=== PATIENT | female | born 1980 | race Hispanic/Latino ===

== ENCOUNTER 2019-08-09 14:03 | Emergency (ER) | payer BC, SELFPAY ==
[2019-08-09] MEDS ORDERED: KETOROLAC 30 MG/ML INJ ONE (14:29)
[2019-08-09] MEDS ORDERED: DIAZEPAM 5 MG TABLET ONE (14:29)
--- NOTE | 2019-08-09 14:51 | ER ---
Nurse's Notes [facility] Name: Jennifer Doan Age: 39 yrs Sex: Female : 1980 Arrival Date: 08/09/2019 Time: 14:04 Bed 4 Private MD: Enoc Meza E Diagnosis: Low back pain Presentation: 08/08 14:10 Chief complaint: Patient states: "loading a cart of ice, felt a sharp pain on lower ca1 back" Reports pain on Lower back aggravated by movement. Coronavirus screen: Proceed with normal triage. Patient denies a cough. Patient denies shortness of breath or difficulty breathing. Patient denies measured and/or subjective temperature greater than 100.4F prior to today's visit. Patient denies travel on a cruise ship or to a country the [facility] currently lists as an affected area. Patient denies contact with known and/or suspected case of COVID-19. Ebola Screen: Patient negative for fever greater than or equal to 101.5 degrees Fahrenheit, and additional compatible Ebola Virus Disease symptoms Patient denies exposure to infectious person. Patient denies travel to an Ebola-affected area in the 21 days before illness onset. No symptoms or risks identified at this time. Initial Sepsis Screen: Does the patient meet any 2 criteria? No. Patient's initial sepsis screen is negative. Does the patient have a suspected source of infection? No. Patient's initial sepsis screen is negative. Risk Assessment: Do you want to hurt yourself or someone else? Patient reports no desire to harm self or others. Onset of symptoms was August 09, 2019. 14:10 Method Of Arrival: Wheelchair ca1 14:10 Acuity: SHIRA 4 ca1 Triage Assessment: 14:10 General: Appears in no apparent distress. comfortable, Behavior is cooperative, bp appropriate for age, anxious. Pain: Complains of pain in lumbar area. EENT: No deficits noted. Neuro: No deficits noted. Cardiovascular: No deficits noted. Respiratory: No deficits noted. GI: No signs and/or symptoms were reported involving the gastrointestinal system. : No signs and/or symptoms were reported regarding the genitourinary system. Derm: No deficits noted. Musculoskeletal: Circulation, motion, and sensation intact. Range of motion: intact in all extremities. 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 - Social history:: Smoking status: Patient denies any tobacco usage or history of. Screenin:30 Abuse screen: Denies threats or abuse. Denies injuries from another. Nutritional bp screening: No deficits noted. Tuberculosis screening: No symptoms or risk factors identified. Fall Risk None identified. Assessment: 14:10 General: SEE TRIAGE NOTE. bp 15:16 Reassessment: PT D/C HOME AMBULATORY, DX WITH BACK PAIN. Neuro: Level of Consciousness bp is awake, alert, obeys commands, Oriented to Appropriate for age. Vital Signs: 14:10 BP 128 / 81; Pulse 71; Resp 16 S; Temp 98(TE); Pulse Ox 100% on R/A; Weight 124.74 kg ca1 (R); Height 5 ft. 9 in. (175.26 cm) (R); Pain 8/10; 15:15 BP 110 / 57; Pulse 70; Resp 16; Temp 98; Pulse Ox 100% ; bp 14:10 Body Mass Index 40.61 (124.74 kg, 175.26 cm) ca1 ED Course: 14:04 Patient arrived in ED. am2 14:04 Enoc Meza MD is Private Physician. am2 14:07 Ladi Fierro FNP-C is [facility]. snw 14:07 Erik Quinones MD is Attending Physician. snw 14:12 Triage completed. ca1 14:13 Arm band placed on right wrist. ca1 14:15 Marcos Castelan, LYNSEY is Primary Nurse. bp 14:30 Patient has correct armband on for positive identification. Bed in low position. Call bp light in reach. Side rails up X2. 14:50 Enoc Meza MD is Referral Physician. snw 15:16 No provider procedures requiring assistance completed. Patient did not have IV access bp during this emergency room visit. Administered Medications: 14:27 Drug: TORadol 30 mg Route: IM; Site: left deltoid; rb1 15:18 Follow up: Response: Pain is decreased bp 14:27 Drug: Valium 5 mg Route: PO; rb1 15:18 Follow up: Response: Pain is decreased bp Outcome: 14:51 Discharge ordered by . snw 15:16 Patient left the ED. iw 15:16 Discharged to home ambulatory. bp 15:16 Condition: stable 15:16 Discharge instructions given to patient, Instructed on discharge instructions, follow up and referral plans. medication usage, Demonstrated understanding of instructions, follow-up care, medications, Prescriptions given X 2. Signatures: Ladi Fierro, CONFIGURATION TECHNICIAN-C CONFIGURATION TECHNICIAN-Csnw lAyssa Allen, RN RN iw Maddy Garcia RN RN rb1 Priscilla Mcintyre Brian RN RN bp Sherrell Lacey RN RN ca1
--- NOTE | 2019-08-09 14:51 | EDPHYS ---
Physician Documentation [facility] Name: Jennifer Doan Age: 39 yrs Sex: Female : 1980 Arrival Date: 08/09/2019 Time: 14:04 Bed 4 Private MD: Enoc Meza E ED Physician Erik Quinones HPI: 08/08 14:58 This 39 yrs old Female presents to ER via Wheelchair with complaints of Back snw Pain. 14:58 The patient presents with pain that is acute, with no known mechanism of injury. The snw symptoms are located in the low back. Onset: The symptoms/episode began/occurred suddenly. The pain does not radiate. Associated signs and symptoms: The patient has no apparent associated signs or symptoms. The problem was sustained when bending over. Modifying factors: The patient symptoms are alleviated by remaining still, the patient symptoms are aggravated by bending, lifting, movement. Severity of symptoms: At their worst the symptoms were moderate. The patient has not experienced similar symptoms in the past. It is unknown whether or not the patient has recently seen a physician. 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 - Social history:: Smoking status: Patient denies any tobacco usage or history of. ROS: 14:57 Constitutional: Negative for fever, chills, and weight loss, Eyes: Negative for injury, snw pain, redness, and discharge, ENT: Negative for injury, pain, and discharge, Neck: Negative for injury, pain, and swelling, Cardiovascular: Negative for chest pain, palpitations, and edema, Respiratory: Negative for shortness of breath, cough, wheezing, and pleuritic chest pain, Abdomen/GI: Negative for abdominal pain, nausea, vomiting, diarrhea, and constipation, : Negative for injury, bleeding, discharge, and swelling, MS/Extremity: Negative for injury and deformity, Skin: Negative for injury, rash, and discoloration, Neuro: Negative for headache, weakness, numbness, tingling, and seizure, Psych: Negative for depression, anxiety, suicide ideation, homicidal ideation, and hallucinations. 14:57 Back: Positive for decreased range of motion, pain at rest, pain with movement, of the lumbar area, left low back and right low back. Exam: 14:56 Constitutional: This is a well developed, well nourished patient who is awake, alert, snw and in no acute distress. Head/Face: Normocephalic, atraumatic. Eyes: Pupils equal round and reactive to light, extra-ocular motions intact. Lids and lashes normal. Conjunctiva and sclera are non-icteric and not injected. Cornea within normal limits. Periorbital areas with no swelling, redness, or edema. ENT: Nares patent. No nasal discharge, no septal abnormalities noted. Tympanic membranes are normal and external auditory canals are clear. Oropharynx with no redness, swelling, or masses, exudates, or evidence of obstruction, uvula midline. Mucous membranes moist. Neck: Trachea midline, no thyromegaly or masses palpated, and no cervical lymphadenopathy. Supple, full range of motion without nuchal rigidity, or vertebral point tenderness. No Meningismus. Chest/axilla: Normal chest wall appearance and motion. Nontender with no deformity. No lesions are appreciated. Cardiovascular: Regular rate and rhythm with a normal S1 and S2. No gallops, murmurs, or rubs. Normal PMI, no JVD. No pulse deficits. Respiratory: Lungs have equal breath sounds bilaterally, clear to auscultation and percussion. No rales, rhonchi or wheezes noted. No increased work of breathing, no retractions or nasal flaring. Abdomen/GI: Soft, non-tender, with normal bowel sounds. No distension or tympany. No guarding or rebound. No evidence of tenderness throughout. Skin: Warm, dry with normal turgor. Normal color with no rashes, no lesions, and no evidence of cellulitis. MS/ Extremity: Pulses equal, no cyanosis. Neurovascular intact. Full, normal range of motion. Neuro: Awake and alert, GCS 15, oriented to person, place, time, and situation. Cranial nerves II-XII grossly intact. Motor strength 5/5 in all extremities. Sensory grossly intact. Cerebellar exam normal. Normal gait. Psych: Awake, alert, with orientation to person, place and time. Behavior, mood, and affect are within normal limits. 14:56 Back: pain, that is moderate, of the left low back, ROM is painful, vertebral tenderness, is not appreciated, muscle spasm, is appreciated in the low back area. Vital Signs: 14:10 BP 128 / 81; Pulse 71; Resp 16 S; Temp 98(TE); Pulse Ox 100% on R/A; Weight 124.74 kg ca1 (R); Height 5 ft. 9 in. (175.26 cm) (R); Pain 8/10; 15:15 BP 110 / 57; Pulse 70; Resp 16; Temp 98; Pulse Ox 100% ; bp 14:10 Body Mass Index 40.61 (124.74 kg, 175.26 cm) ca1 MDM: 14:16 Patient medically screened. snw 14:54 Data reviewed: vital signs, nurses notes. Data interpreted: Pulse oximetry: on room air snw is 100 %. Interpretation: normal. Counseling: I had a detailed discussion with the patient and/or guardian regarding: the historical points, exam findings, and any diagnostic results supporting the discharge/admit diagnosis, the presence of at least one elevated blood pressure reading (>120/80) during this emergency department visit, the need for outpatient follow up, for definitive care. Response to treatment: the patient's symptoms have mildly improved after treatment. Administered Medications: 14:27 Drug: TORadol 30 mg Route: IM; Site: left deltoid; rb1 15:18 Follow up: Response: Pain is decreased bp 14:27 Drug: Valium 5 mg Route: PO; rb1 15:18 Follow up: Response: Pain is decreased bp Disposition: 19:02 Co-signature as Attending Physician, Erik Quinones MD. rn Disposition: 08/09/19 14:51 Discharged to Home. Impression: Low back pain. - Condition is Stable. - Discharge Instructions: Back Pain, Adult, Hypertension, Back Injury Prevention, [id number], Cryotherapy, Rehydration, Adult, Heat Therapy. - Prescriptions for Diclofenac Sodium 75 mg Oral Tablet Sustained Release - take 1 tablet by ORAL route 2 times per day; 30 tablet. orphenadrine citrate 100 mg Oral Tablet Sustained Release - take 1 tablet by ORAL route 2 times per day As needed; 20 tablet. - Work release form, Medication Reconciliation Form, Thank You Letter, Antibiotic Education, Prescription Opioid Use form. - Follow up: Enoc Meza MD; When: 2 - 3 days; Reason: Recheck today's complaints, Continuance of care, Re-evaluation by your physician. Follow up: Emergency Department; When: As needed; Reason: Worsening of condition. Signatures: Ladi Fierro, DIRECTOR WEIGHTS AND MEASURES-C DIRECTOR WEIGHTS AND MEASURES-Csnw Alyssa Allen, LYNSEY RN iw Erik Quinones MD MD rn Barber, Rebecca, RN RN rb1 Acob, Cheryl, RN RN ca1 Peltier, Brian RN bp Corrections: (The following items were deleted from the chart) 15:16 14:51 08/09/2019 14:51 Discharged to Home. Impression: Low back pain. Condition is iw Stable. Forms are Medication Reconciliation Form, Thank You Letter, Antibiotic Education, Prescription Opioid Use. Follow up: Enoc Meza; When: 2 - 3 days; Reason: Recheck today's complaints, Continuance of care, Re-evaluation by your physician. Follow up: Emergency Department; When: As needed; Reason: Worsening of condition. snw
[2019-08-09 16:05] VITALS: BP 128/81; TEMP 98; O2SAT 100
== END 2019-08-09 15:16 | disposition home or self-care (01) ==
LOC: ER 14:03
DX: M54.5 Low back pain (principal); Z88.1 Allergy status to other antibiotic agents; Z91.013 Allergy to seafood
CPT/HCPCS: 96372; 99283